=== PATIENT | male | born 1970 | race Caucasian/White ===

== ENCOUNTER 2017-01-08 10:36 | Emergency (ER) | payer MEDICAID, OTHER ==
[~2017-01-08] VITALS: Ht 167.6 cm; Wt 70.0 kg
[2017-01-08 10:41] VITALS: Ht 167.6 cm; Wt 70.0 kg
[2017-01-08] MEDS ORDERED: LORAZEPAM 2 MG INJ IV STA (10:43)
[2017-01-08] MEDS ORDERED: MULTIVITAMINS 10 ML, THIAMINE 100 MG, FOLIC ACID 1 MG, MAGNESIUM SULFATE 2 GM in SOD CH... IV ONE (11:00)
[2017-01-08 11:01] LABS: ADD SCAN DIFF NO
[2017-01-08 11:05] LABS: ABNORMAL IP MESSAGE 1; BASOPHIL # 0.1 10^3/ul (0.0-0.1); BASOPHILS % 0.8 % (0.0-2.0); EOSINOPHILS % 0.3 % (0.0-7.0); HEMATOCRIT 36.1 % (42.0-52.0); HEMOGLOBIN 12.2 g/dl (14.0-18.0); LYMPHOCYTES # 0.5 10^3/ul (0.8-2.9); LYMPHOCYTES % 7.2 % (15.0-51.0); MEAN CORPUSCULAR HEMOGLOBIN 28.8 pg (29.0-33.0); MEAN CORPUSCULAR HGB CONC 33.8 g/dl (32.0-37.0); MEAN CORPUSCULAR VOLUME 85.3 fl (82.0-101.0); MEAN PLATELET VOLUME 10.9 fl (7.4-10.4); MONOCYTE # 0.7 10^3/ul (0.3-0.9); MONOCYTES % 10.6 % (0.0-11.0); NEUTROPHILS % 80.6 % (39.0-77.0); PLATELET COUNT 180 10^3/UL (140-415); RED BLOOD COUNT 4.23 10^6/ul (4.70-6.10); RED CELL DISTRIBUTION WIDTH 18.7 % (11.5-14.5); WHITE BLOOD COUNT 6.2 10^3/ul (4.8-10.8)
[2017-01-08 11:30] LABS: POTASSIUM 3.9 mmol/L (3.5-5.1)
[2017-01-08 11:32] LABS: ALBUMIN/GLOBULIN RATIO 1.42; BILIRUBIN,INDIRECT 0.4 mg/dl (0-1.1); BILIRUBIN,TOTAL 0.4 mg/dl (0.2-1.3); CREATININE 0.75 mg/dl (0.61-1.24); TOTAL PROTEIN 8.5 g/dl (6.1-8.1)
[2017-01-08 11:33] LABS: CALCIUM 9.3 mg/dl (8.4-10.2)
--- NOTE | 2017-01-08 11:50 | RADRPT ---
PROCEDURE: CT Brain without. CLINICAL INDICATION: Altered mental status. Seizure. TECHNIQUE: A CT of the brain was performed on multidetector high-resolution CT scanner utilizing a xial sections from the skull base through the vertex without contrast. The scan was reviewed in sof t tissue brain and high frequency resolution bone algorithm windows. Images were reviewed on a high -resolution PACS workstation. One or more the following does reduction techniques were utilized: Aut omated exposure control, adjustment of the mA/ or kV according to patient's size, or use of iterativ e reconstruction technique. The exam CTDI = 42.16 mGy and the DLP = the 720.23 mGy-cm. COMPARISON: None available. FINDINGS: The ventricles and sulci are mildly prominent indicative of volume loss. There is no intracranial he morrhage, mass effect or midline shift. No abnormal intra-axial or extra-axial fluid collections ar e seen. The king/white matter differentiation is preserved. There is left frontoparietal scalp swelling and hematoma measuring up to 1.4 cm in thickness without underlying skull fracture. The visualized paranasal sinuses demonstrate mild mucosal thickening mainly in ethmoid air cells. T he mastoid air cells are essentially clear. IMPRESSION: 1. No acute intracranial hemorrhage, transcortical infarction or mass effect. 2. Left frontoparietal scalp swelling and hematoma measuring up to 1.4 cm in thickness without unde rlying skull fracture. 3. Mild generalized cerebral and cerebellar volume loss. RPTAT: AA .Dean Figueroa MD, MD Date Time Electronically viewed and signed by .Dean Figueroa MD, MD on 01/08/2017 11:49 .N/
--- NOTE | 2017-01-08 12:57 | ERD ---
ER Documentation Chief Complaint Date/Time DATE: 01/08/17 TIME: 10:41 Chief Complaint BIB RA FOR EVAL OF SEIZURE. HX OF SEIZURE IN PAST NO MEDS HPI 46-year-old male with a long history of chronic alcohol abuse brought to the ED by rescue ambulance after a witnessed tonic-clonic seizure. 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 There was no urinary or fecal incontinence. Hit the back of his head but denies headache or visual changes. No focal weakness or numbness. No neck or back pain. He admits to feeling tremulous and anxious. His last drink was last night. History of a similar episode several years ago. Otherwise asymptomatic. Denies chest pain or palpitation. No abdominal pain, nausea, vomiting, diarrhea or constipation. No hematochezia or melanotic stools. No URI symptoms or cough. No fevers or chills. ROS All systems reviewed and are negative except as per history of present illness. Medications Home Meds No Active Prescriptions or Reported Meds Allergies Allergies: Coded Allergies: No Known Allergy (Unverified , 01/08/17) PMhx/Soc History of Surgery: No Anesthesia Reaction: No Hx Neurological Disorder: Yes (Seizure) Hx Respiratory Disorders: No Hx Cardiac Disorders: No Hx Psychiatric Problems: No Hx Miscellaneous Medical Probl: No Hx Alcohol Use: No Hx Substance Use: No Hx Tobacco Use: No Smoking Status: Never smoker FmHx No stroke or seizure Physical Exam Vitals Vital Signs Date Time Temp Pulse Resp B/P Pulse Ox O2 Delivery O2 Flow Rate FiO2 01/08/17 13:42 97.5 60 19 123/65 100 Room Air 01/08/17 10:41 98.3 80 19 143/88 100 Physical Exam Const: Alert, anxious, tremulous Head: Occipital tenderness and hematoma. No deformity. Eyes: Normal Conjunctiva pupils equal reactive to light, extraocular movements are intact. Horizontal nystagmus. No periorbital ecchymosis or subconjunctival hemorrhage. ENT: Normal External Ears, Nose and Mouth. No hemotympanum. Negative crain sign. Neck: Full range of motion. No midline bony tenderness or paraspinal muscle spasm. Resp: Clear to auscultation bilaterally Cardio: Regular rate and rhythm, no murmurs Abd: Soft, non tender, non distended. Normal bowel sounds Skin: No petechiae or rashes Back: No midline or flank tenderness Ext: No cyanosis, or edema Neur: Awake and alert. Tremulous. Cranial nerves II through XII are grossly intact. Motor and sensory equal bilaterally. Psych: Anxious. No hallucinations or delusions. Result Diagram: 01/08/17 1055 01/08/17 1055 Results 24 hrs Laboratory Tests Test 01/08/17 10:55 White Blood Count 6.210^3/ul Red Blood Count 4.2310^6/ul Hemoglobin 12.2g/dl Hematocrit 36.1% Mean Corpuscular Volume 85.3fl Mean Corpuscular Hemoglobin 28.8pg Mean Corpuscular Hemoglobin Concent 33.8g/dl Red Cell Distribution Width 18.7% Platelet Count 78365^3/UL Mean Platelet Volume 10.9fl Neutrophils % 80.6% Lymphocytes % 7.2% Monocytes % 10.6% Eosinophils % 0.3% Basophils % 0.8% Nucleated Red Blood Cells % 0.0/100WBC Neutrophils # 5.010^3/ul Lymphocytes # 0.510^3/ul Monocytes # 0.710^3/ul Eosinophils # 0.010^3/ul Basophils # 0.110^3/ul Nucleated Red Blood Cells # 0.010^3/ul Sodium Level 137mmol/L Potassium Level 3.9mmol/L Chloride Level 100mmol/L Carbon Dioxide Level 18mmol/L Anion Gap 23 Blood Urea Nitrogen 5mg/dl Creatinine 0.75mg/dl Glucose Level 150mg/dl Calcium Level 9.3mg/dl Total Bilirubin 0.4mg/dl Direct Bilirubin 0.00mg/dl Indirect Bilirubin 0.4mg/dl Aspartate Amino Transf (AST/SGOT) 55IU/L Alanine Aminotransferase (ALT/SGPT) 57IU/L Alkaline Phosphatase 84IU/L Total Protein 8.5g/dl Albumin 5.0g/dl Globulin 3.50g/dl Albumin/Globulin Ratio 1.42 Current Medications Medications (Trade) Dose Ordered Sig/Meli Route PRN Reason Start Time Stop Time Status Last Admin Dose Admin Lorazepam 1 mg 1 mg ONCE STAT IV 01/08/17 10:43 01/08/17 10:46 DC 01/08/17 10:56 Multivitamins/ Thiamine HCl/ Folic Acid/ Magnesium Sulfate/ Sodium Chloride (Mvi Adult/ Vitamin B1/Folic Acid/Magnesium Sulfate/NS) 1,015.2 ml @ 500 mls/ hr Q2H2M ONCE IV 01/08/17 11:00 01/08/17 13:01 DC 01/08/17 11:42 Procedures/MDM DOCUMENTS REVIEWED: ED nurse, no prior records available REEXAMINATION/REEVALUATION: Time: 14:00. Doing well. Alert and oriented. Ambulatory with a steady gait. MEDICAL DECISION MAKIN-year-old male with a long history of chronic alcohol abuse brought to the ED by rescue ambulance after a witnessed tonic- clonic seizure. 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 Patient presents with alcohol withdrawal and alcohol withdrawal seizure. Treated with intravenous hydration and Ativan. No hallucinations or evidence of delirium tremens. Patient observed in the ED for over 3 hours. He is alert, oriented and appetite with a steady gait. CT of the brain is negative for bleed, infarct, mass or hydrocephalus. Anticonvulsants are not indicated. He will be discharged home with a short course of Librium. Stable for discharge precautionary instructions, alcohol cessation counseling, referral to Alcoholics Anonymous and outpatient follow-up as counseled. Counseled patient regarding diagnostic workup, diagnosis and need for followup. Understands to return to ED if symptoms recur, worsen or any other concerns. Alcohol cessation advice given and patient referred to Alcoholics Anonymous. Departure Diagnosis: Primary Impression: Alcohol withdrawal seizure with complication Complication of substance-induced condition: with unspecified complication Qualified Code: F10.239 - Alcohol withdrawal seizure with complication, with unspecified complication Additional Impressions: Alcohol withdrawal seizure Complication of substance-induced condition: uncomplicated Qualified Code: F10.230 - Alcohol withdrawal seizure, uncomplicated Chronic alcohol abuse Condition: Stable DIVINA BASS MD January 08, 2017 12:57
[2017-01-08] MEDS ORDERED: CHLO25CA9 PO (14:12)
[2017-01-08 14:34] VITALS: BP 113/65; PULSE 70; RESP 15; TEMP 97.9
== END 2017-01-08 14:34 | disposition home or self-care (01) ==
LOC: E/R 10:36
DX: F10.230 Alcohol dependence with withdrawal, uncomplicated (principal); R40.2252 Coma scale, best verbal response, oriented, at arrival to emergency department; R40.2142 Coma scale, eyes open, spontaneous, at arrival to emergency department; R40.2362 Coma scale, best motor response, obeys commands, at arrival to emergency department
CPT/HCPCS: 36415; 70450; 80053; 85025; 96374; 96375; J2060; J3411; J3475; J7030; Z7502; Z7610